=== PATIENT | female | born 1975 | race Caucasian/White ===

== ENCOUNTER 2018-01-09 23:41 | Emergency (ER) | payer OTHER ==
[~2018-01-09] VITALS: Ht 160 cm; Wt 99.8 kg
[2018-01-09 23:43] VITALS: BP_SYST 142
--- NOTE | 2018-01-10 00:02 | NUR ---
Received verbal orders from MD Dr. Lee. Orders were clarified and restated to .
--- NOTE | 2018-01-10 00:44 | NUR ---
Placed in room 6 . Placed on clinical research monitor, blood pressure machine and pulse oximeter. To gown for exam. Side rails up. Report given to Artis KRAFT.
--- NOTE | 2018-01-10 00:45 | NUR ---
Patient to ER via triage with c/o epigastric pain x 3-4 days, patient reports that she has a HX of heartburn, and that the pain is similar, but worse. Patient denies SOB, denies nausea/vomiting. Patient is awake, alert and oriented in no acute distress, vital signs stable, respirations even and unlabored, skin warm and dry to touch. Awaiting evaluation by ER MD, will continue to observe and assess.
[2018-01-10 00:46] LABS: BASOPHILS # (AUTO) 0.1 K/uL (0.0-0.2); BASOPHILS % (AUTO) 1.2 % (0.0-2.0); EOSINOPHILS # (AUTO) 0.4 K/uL (0.0-0.4); EOSINOPHILS % (AUTO) 4.5 % (0.0-4.0); HEMATOCRIT 39.5 % (36-48); HEMOGLOBIN 12.7 g/dL (12.0-16.0); LYMPHOCYTES # (AUTO) 2.5 K/uL (1.0-5.5); LYMPHOCYTES % (AUTO) 25.5 % (20.5-51.5); MEAN CORPUSCULAR HEMOGLOBIN 26 pg (27-31); MEAN CORPUSCULAR HGB CONC 32 % (32-36); MEAN CORPUSCULAR VOLUME 81 fL (79.0-98.0); MONOCYTES # (AUTO) 0.7 K/uL (0.0-1.0); MONOCYTES % (AUTO) 6.8 % (1.7-9.3); PLATELET COUNT (AUTO) 366 K/uL (130-430); RED BLOOD CELL COUNT(AUTO) 4.86 MIL/uL (4.2-6.2); RED CELL DISTRIBUTION WIDTH 13.9 % (9.0-15.0); WHITE BLOOD COUNT (AUTO) 9.7 K/uL (4.8-10.8)
[2018-01-10 00:50] LABS: ANION GAP 10 (5-15); CALCIUM 9.7 mg/dL (8.4-11.0); CHLORIDE 103 mmol/L (98-107); CREATININE 0.87 mg/dL (0.55-1.30); GLUCOSE 120 mg/dL (70-99); POTASSIUM 4.1 mmol/L (3.5-5.1); SODIUM SERUM 137 mmol/L (136-145); UREA NITROGEN, BLOOD 12 mg/dL (8-21)
[2018-01-10 00:53] LABS: GFR AFRICAN AMERICAN 91 mL/min (>90)
[2018-01-10 00:55] LABS: PROTHROMBIN TIME 9.9 SECS (9.5-12.5)
[2018-01-10 00:59] LABS: ALANINE AMINOTRANSFERASE 28 U/L (12-78); ALBUMIN 3.3 g/dL (3.4-4.8); ASPARTATE AMINOTRANSFERASE 22 U/L (10-37); TOTAL BILIRUBIN 0.1 mg/dL (0.0-1.0)
[2018-01-10] MEDS ORDERED: MAG HYDROX/AL HYDROX/SIMETH 30 ML, BELLADONNA ALKALOIDS/PHENOBARB 10 ML, LIDOCAINE VISC... PO ONE ×3 (01:15)
--- NOTE | 2018-01-10 01:42 | NUR ---
Dr Lee at bedside to see patient
[2018-01-10] MEDS ORDERED: MORPHINE 2 MG/ML INJ. SYRINGE IVP ONE (01:45)
--- NOTE | 2018-01-10 02:00 | NUR ---
Patient reports no relief from GI Cocktail, Dr Lee aware and has ordered additional medication.
--- NOTE | 2018-01-10 02:10 | NUR ---
Medication reconciliation completed with information provided by patient. Any prior medication reconciliation on file was reviewed and corrected.
[2018-01-10] MEDS ORDERED: OMEP40CA33 PO (02:12)
[2018-01-10] MEDS ORDERED: RANI-281 PO (02:12)
[2018-01-10] MEDS ORDERED: LORazepam 1 MG TABLET PO ONE (02:15)
[2018-01-10] MEDS ORDERED: NITROGLYCERIN 0.4 MG TAB.SUBL SL ONE (02:15)
--- NOTE | 2018-01-10 02:30 | NUR ---
Patient to CT scan in stable condition via wheelchair.
--- NOTE | 2018-01-10 02:37 | NUR ---
Patient returned from CT scan in stable condition via wheelchair.
--- NOTE | 2018-01-10 02:45 | NUR ---
Patient medicated with NTG 0.4 mg SL for c/o 05/16 pain. Patient resting quietly in no acute distress, vital signs stable, respirations even and unlabored, skin warm and dry to touch. Patient remains in SR on conveyor monitor. Will continue to observe and assess.
--- NOTE | 2018-01-10 02:50 | NUR ---
Patient states she is feeling nauseated, had episode of approx [address] Lee notified and orders received for Zofran 4 mg
--- NOTE | 2018-01-10 02:55 | NUR ---
Scanner did not recognize Zofran, able to scan patient but had to manually enter information for Zofran.
[2018-01-10] MEDS ORDERED: ONDANSETRON HCL 4 MG/2 ML VIAL ONE (03:00)
[2018-01-10] MEDS ORDERED: ONDANSETRON HCL 4 MG/2 ML VIAL IVP ONE (03:00)
--- NOTE | 2018-01-10 03:00 | NUR ---
After having an episode of emesis, patient reports that she is pain free at this time.
--- NOTE | 2018-01-10 03:05 | NUR ---
Dr Lee updated on patient's status, plan is to repeat Troponin at 0330, and check CT results and will discharge patient.
--- NOTE | 2018-01-10 03:24 | NUR ---
Patient/family updated on plan of care. Patient continues to report that she is pain free. 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 Report given to Anu for continued care.
--- NOTE | 2018-01-10 04:16 | NUR ---
ER MD at bedside discussing tests results and discharge with patient
[2018-01-10 04:27] VITALS: BP_SYST 109
--- NOTE | 2018-01-10 04:27 | NUR ---
Patient given written and verbal discharge instructions and verbalizes understanding. ER MD Lee discussed with patient the results and treatment provided. Patient in stable condition. ID arm band removed. IV catheter removed intact and dressing applied, no active bleeding. Patient educated on pain management and to follow up with PMD. Pain Scale 0/10. Opportunity for questions provided and answered.
== END 2018-01-10 04:27 | disposition home or self-care (01) ==
LOC: SED 23:41
DX: R07.89 Other chest pain (principal); Z79.899 Other long term (current) drug therapy
CPT/HCPCS: 36415; 71045; 71250; 80053; 84484; 85025; 85610; 93005; J2001; J2270; J2405; 96374; 96375; 99285